=== PATIENT | female | born 1950 | race Caucasian/White ===

== ENCOUNTER 2023-07-28 14:41 | Emergency (ER) | payer MEDICARE, OTHER, SELFPAY ==
[2023-07-28 14:50] VITALS: BP 116/71; BMI 21.8
--- NOTE | 2023-07-28 15:17 | ED.MUSCINJ ---
HPI-Injury
General
Chief Complaint: Musculo-Skeletal Complaint
Source: patient
Exam Limitations: none
Time Seen by Provider: 07/28/23 15:07
Travel History
Have you had any contact with someone who has COVID-19?: No
Do you have any symptoms of coronavirus? Fever > 100 degrees, chills, cough, shortness of breath, sore throat, loss of taste or smell, muscle aches, or headache?: No
History of Present Illness-Injury
Initial Injury comments:
72-year-old female presents complaining of left hip pain. She feels as though she dislocated her hip again. She just had a hip revision done on this hip for the second time in June 11. She states she was just walking she felt the pop out of
place. Brought here by EMS. No anticoagulants. No other complaints at this time
Past History
Past History
ED Past Medical History: Asthma, Hypercholesterolemia, Psychiatric (Bipolar illness) and Other (Vestibular migraines)
ED Past Surgical History: Other ('Facelift', uterine artery embolization)
Social History
Tobacco: Non-smoker
Alcohol: Binge drinker
Drug: None
Personal: Single
Living: alone (With her friends)
Employment: Employed
Family History
Family History: Other (Noncontributory)
Phy Exam
Physical Exam
Physical Exam:
General: Well-appearing female no acute respiratory distress
HEENT: Normocephalic atraumatic
Musculoskeletal exam: Left leg slightly internally rotated. No significant length discrepancy she is tender about the left hip.
Vascular: Palpable dorsalis pedis pulse left
Neurologic: Good sensation left leg.
Ext: no cyanosis or edema.
Injury Course
Orders/Labs/Results
Orders:
Orders
07/28/23 14:48
CR Hip - LT w/wo Pel 2-3 Vw* Urgent
Comment:
Reason For Exam: dislocation
Include a pelvis x-ray?: Yes
07/28/23 15:15
Fentanyl Citrate/Pf [Sublimaze] 50 mcg IV NOW STA
*Critical Care Note
Total Time (30-74mins, 75-104mins- exclusive of procedures): Not Applicable
Update Note
Update Note:
X-rays left hip show no dislocation there is a possible fracture of the inferior pubic rami. Still treatment is conservative. Recommended management of symptoms. She will follow-up with orthopedic doctor. No indication for admission.
ED Attending Note
-
Portions of this chart may have been created with voice recognition software.� Occasional wrong word or��sound alike� substitutions may have occurred due to the inherent limitations of voice recognition software.
Discharge Plan
Departure
Patient Disposition: Home (Routine Discharge)
Date of Disposition: 07/28/23
Time of Disposition: 17:03
Patient with high blood pressure during this ER visit?: No
Discharge Problem:
Fracture of inferior pubic ramus
Instructions: Muscle and Bone Pain (DC)
Prescriptions:
No Action
lamotrigine [Lamictal] 200 MG tablet
200 mg PO BID
estradiol [Yuvafem] 10 MCG tablet
10 mcg VAG .2X WEEKLY
multivitamin with folic acid [Tab-A-Harsh] 1 TABLET tablet
1 tab PO DAILY
cyclobenzaprine 10 mg Tablet
10 mg PO Q8HPRN PRN (Reason: muscle spasms)
temazepam 30 mg Capsule
30 mg PO HS PRN (Reason: sleep)
Rx Instructions:
04/11/2023, patient filled this medication on 02/10/2023 for 30 capsules according to PDMP.
ondansetron 4 mg Tablet,Disintegrating
4 mg PO Q8H PRN (Reason: nausea/vomiting)
rosuvastatin 20 mg Tablet
20 mg PO HS
Emgality Pen 120 mg/mL Pen Injector
120 mg SC QMONTH
calcium carbonate 500 mg calcium (1,250 mg) Tablet
500 mg PO DAILY
coenzyme Q10 [Co Q-10] 100 mg Capsule
100 mg PO DAILY
Chloraseptic Sore Throat 6-10 mg Lozenge
1 david PO Q4HPRN PRN (Reason: sore throat) Qty: 18 0RF
benzonatate 100 mg Capsule
200 mg PO TIDPRN PRN (Reason: cough) Qty: 7 0RF
Referrals:
Michele Merchant MD [Family Provider] -
Activity Restrictions/Additional Instructions:
Use your walker. Follow-up with your orthopedic doctor. Return here for worsening symptoms otherwise.
Interventions
Interventions:
*Risk Screen - Suicide Last Done: 07/28/23 14:50
*General Assessment Last Done: 07/28/23 14:50
*Neglect/Abuse Screening Last Done: 07/28/23 14:50
ED- Fall Risk Assessment Last Done: 07/28/23 15:02
*ED COVID-19 Vaccine History Last Done: 07/28/23 14:50
ED-Musculoskeletal Assessment Last Done: 07/28/23 15:02
[2023-07-28] MEDS: SUBLIMAZE 50 MCG IV (15:40)
== END 2023-07-28 17:39 | disposition home or self-care (01) ==
LOC: EMR 14:41
PROVIDERS: EMERGENCY PHYSICIAN Emergency Medicine; FAMILY PHYSICIAN Internal Medicine Geriatric Medicine
DX: S32.592A Other specified fracture of left pubis, initial encounter for closed fracture (principal); X58.XXXA Exposure to other specified factors, initial encounter; J45.909 Unspecified asthma, uncomplicated; E78.00 Pure hypercholesterolemia, unspecified; F31.9 Bipolar disorder, unspecified
CPT/HCPCS: 99283; 96374; 73502

== ENCOUNTER → 2024-02-14 12:11 | Outpatient (REF) | payer MEDICARE, OTHER, SELFPAY ==
[2024-02-14 15:29] LABS: % Basophils 1.4 % (0-2); % Eosinophils 2.1 % (0-6); % Immature Granulocytes 0.3 % (0-0.5); % Lymphocytes 26.4 % (20.5-51.1); % Monocytes 9.4 % (1.7-9.3); % Neutrophils 60.4 % (42.2-75.2); Absolute Basophils 0.1 10^3/uL (0-0.2); Absolute Eosinophils 0.1 10^3/uL (0-0.7); Absolute Lymphocytes 1.7 10^3/uL (1.2-3.4); Absolute Monocytes 0.6 10^3/uL (0.1-0.6); Absolute Neutrophils 3.8 10^3/uL (1.4-6.5); Mean Corpuscular Hgb 32.4 pg (27.0-31.0); Mean Corpuscular Volume 92.6 fL (81.0-99.0); Mean Platelet Volume 9.9 fL (7.4-10.4); Nucleated Red Blood Cells % 0 %; Platelet Count 250 10^3/uL (130-400); Red Blood Cell Count 4.32 10^6/uL (4.20-5.40); Red Cell Dist. Width 12.4 % (11.5-14.5); White Blood Cell Count 6.3 10^3/uL (4.8-10.8)
[2024-02-14 15:39] LABS: ALT (SGPT) 36 U/L (0-35); AST (SGOT) 67 U/L (14-36); Albumin 4.6 g/dl (3.5-5.0); Alkaline Phosphatase 106 U/L (38-126); Blood Urea Nitrogen 16 mg/dl (7-17); Calcium 9.8 mg/dl (8.4-10.2); Carbon Dioxide 27 mmol/L (22-30); Chloride 104 mmol/L (98-107); Glucose 135 mg/dl (70-99); HDL Cholesterol 94 mg/dl; LDL Cholesterol, Calculated 73 mg/dl; Magnesium 1.9 mg/dl (1.6-2.3); Potassium 3.8 mmol/L (3.5-5.1); Sodium 144 mmol/L (135-145); Total Cholesterol 194 mg/dl (50-199); Triglyceride 138 mg/dl (10-149); Very Low Density Lipoprotein 27 mg/dl (0-30); eGFR > 60.00
[2024-02-15 07:55] LABS: Glycohemoglobin (HgbA1c) 5.4 % (4.0-5.6)
== END ==
LOC: HWLAB 12:11
PROVIDERS: ATTENDING PHYSICIAN Nurse Practitioner Primary Care
DX: E78.01 Familial hypercholesterolemia (principal); R73.01 Impaired fasting glucose; I10 Essential (primary) hypertension; K20.90 Esophagitis, unspecified without bleeding; M81.0 Age-related osteoporosis without current pathological fracture; E55.9 Vitamin D deficiency, unspecified
CPT/HCPCS: 36415; 80053; 80061; 82306; 83036; 83735; 85025